=== PATIENT | male | born 1985 | race Asian ===

== ENCOUNTER 2021-09-11 16:06 | Emergency (ER) | payer OTHER ==
[~2021-09-11] VITALS: Ht 180.3 cm; Wt 65.4 kg
[2021-09-11] MEDS ORDERED: MECLIZINE HCL25 MG PO (18:01)
[2021-09-11] MEDS ORDERED: ONDANSETRON ODT4 MG PO (18:01)
== END 2021-09-11 18:12 | disposition home or self-care (01) ==
LOC: EDBD 16:06 → FSED 16:33
DX: R42 Dizziness and giddiness (principal)
CPT/HCPCS: 70450; 80053; 85025; 93005; 99283